=== PATIENT | male | born 1945 | race Caucasian/White ===

== ENCOUNTER 2021-03-07 12:06 | Day surgery (SDC) | payer MEDICARE, OTHER, SELFPAY ==
[2021-03-07] VITALS (7 sets, daily range): BP systolic 110–149; BP diastolic 71–90; PULSE 61–74; RESP 9–26; TEMP 36.5–36.9; O2SAT 93–97; BMI 31.1
--- NOTE | 2021-03-07 | PATH_ITS ---
[facility] Accession Number: [id number] . 01 Material submitted: . PART A: colon - TRANSVERSE COLON POLYP X4 PART B: sigmoid colon - SIGMOID COLON POLYP . 01 Clinical history: . A: HISTORY OF COLON POLYPS . 02 Diagnosis: A. Transverse Colon, Polyp x4, Biopsy: Tubular adenoma in 3 of 7 fragments. Benign lymphoid aggregate in one fragment. . B. Sigmoid Colon, Polyp, Biopsy: Hyperplastic polyp. [facility] 03/12/2021 1625 Local . 02 Electronically signed: . Latanya Plascencia MD, Pathologist NPI- [id number] . 01 Gross description: . Part A: TRANSVERSE COLON POLYP X4: Received in formalin are multiple fragment(s) of gutierrez, soft tissue measuring 1.0 x 0.5 x 0.2 cm in aggregate submitted entirely in 1 cassette(s) Part B: SIGMOID COLON POLYP: Received in formalin is 1 fragment(s) of gutierrez, soft tissue measuring 0.6 x 0.3 x 0.3 cm submitted entirely in 1 cassette(s) /MARY KAY 03/08/2021 0954 Local . 02 Pathologist provided ICD-10: D12.3 . 02 CPT . 852545, [id number] Performed at: 01 [facility] [address], [place], [place] [id number] MD Kalyan Robins MD Phone: [phone] Performed at: 02 [facility] [place] [address] [place], [place] [id number] MD Latanya Plascencia MD Phone: [phone]
--- NOTE | 2021-03-07 12:38 | PM.HP.1 ---
History of Present Illness History of Present Illness Date Patient Seen: 03/07/21 Chief complaint: DX COLONOSCOPY Narrative: Personal and strong family history in first-degree relatives of colorectal polyps. Patient History Medical History (Updated 03/07/21 @ 12:34 by Latanya Winters RN) Hypertension Sleep apnea Meds Home Medications and Allergies Home Medications Medication Instructions Recorded Confirmed Type levothyroxine 150 mcg PO DAILY 03/07/21 03/07/21 History lisinopril 10 mg PO DAILY 03/07/21 03/07/21 History meloxicam 7.5 mg PO BEDTIME 03/07/21 03/07/21 History pravastatin 40 mg PO BEDTIME 03/07/21 03/07/21 History Allergies Allergy/AdvReac Type Severity Reaction Status Date / Time codeine [CODEINE] AdvReac Unknown nausea Unverified 02/11/18 10:55 Exam Narrative Exam Narrative: Oropharynx free of lesions Chest clear to auscultation percussion Cardiac exam reveals no S3 or murmur Assessment & Plan Assessment & Plan narrative: Personal and family history of colon polyps need for follow-up colonoscopy. Risks, benefits, alternatives have been explained.
--- NOTE | 2021-03-07 12:40 | PM.OP.ENDO ---
Operative Date/Time/Diagnoses Date of procedure: 03/07/21 Pre-op diagnosis: See indication and findings Procedure & Clinicians Study performed: Colonoscopy Same procedure as scheduled: Yes Indications: Personal history and family history of colon polyps Surgeon: Colt Akbar Procedure Notes Procedure in detail: After informed consent was obtained patient was placed in left lateral decubitus position. The video colonoscope was placed into the rectum slowly advanced cecum. On slow withdrawal mucosa was carefully examined. The scope was removed. The patient tolerated procedure well. Blood loss none Complications none Sedation Total sedation time 17 minutes Versed 5 mg fentanyl 100 mg IV titration Findings 1. Four transverse colon polyps in size from 3-6 mm Jumbo biopsy removed completely 2. One 7 cm sessile polyp of the sigmoid colon Jumbo biopsy removed completely x2 3. Extensive sigmoid diverticulosis 4. Otherwise negative colonoscopy to cecum I would suggest follow-up colonoscopy for Sarbjits at age 82, 9 years
[2021-03-07] MEDS: SODIUM CHLORIDE 0.9% 1,000 ML 100 ML IV (13:04)
[2021-03-07] MEDS: fentaNYL 100 MCG/2 ML INJ IV (13:55)
[2021-03-07] MEDS: MIDAZOLAM 2 MG/2 ML VIAL 6 MG IV (13:57)
--- NOTE | 2021-03-07 14:26 | SUR.PHASEI ---
To Pacu, was maintaining sat at 92% RA, placed on 2LNP. Aroused upon arrival, denies pain/nausea. Declined PO intake in lieu of sleep.
--- NOTE | 2021-03-07 15:14 | SUR.PHASEII ---
1450 late entry VVO to discharge patient from Dr. Akbar
== END 2021-03-07 14:59 | disposition home or self-care (01) ==
PROVIDERS: Referring Provider Internal Medicine Gastroenterology; Visit Provider Internal Medicine Gastroenterology
PROC: 0DJD8ZZ Inspection of Lower Intestinal Tract, Via Natural or Artificial Opening Endoscopic (ICD-10-PCS; CPT 45378; principal; 2021-03-07 13:30)
DX: Z12.11 Encounter for screening for malignant neoplasm of colon (principal); Z86.010 Personal history of colon polyps; I10 Essential (primary) hypertension; G47.30 Sleep apnea, unspecified; K57.30 Diverticulosis of large intestine without perforation or abscess without bleeding; D12.3 Benign neoplasm of transverse colon
CPT/HCPCS: 45380; J2250; J3010